=== PATIENT | male | born 1960 | race Caucasian/White ===

== ENCOUNTER 2019-05-28 13:52 | Outpatient (CLI) | payer MEDICARE, OTHER, SELFPAY ==
--- NOTE | 2019-05-28 14:06 | XR_ITS ---
WS: [id number] RIGHT first toe 3 view. HISTORY: Pain and swelling. Recent trauma. COMPARISON: None. Acute transverse fracture involving the head of the proximal first phalanx. Fracture extends intra-ar ticular with mild displacement the distal fragment anteriorly by 4 mm. Mild hallux valgus. XR/XR toe RT min 2V [id number] IMPRESSION: Acute fracture involving the proximal first phalanx with intra-articular extens ion to the IP joint. Mild dorsal displacement.
== END 2019-05-28 13:53 | disposition home or self-care (01) ==
LOC: RADWPI 14:03
PROVIDERS: PCP Family Medicine; Visit Provider Family Medicine
DX: S92.911A Unspecified fracture of right toe(s), initial encounter for closed fracture (principal); X58.XXXA Exposure to other specified factors, initial encounter
CPT/HCPCS: 73660